=== PATIENT | male | born 1985 | race Caucasian/White ===

== ENCOUNTER 2018-03-30 18:16 | Emergency (ER) | payer OTHER ==
[~2018-03-30] VITALS: Ht 180.3 cm; Wt 125.7 kg
[2018-03-30] MEDS ORDERED: ONDANSETRON ODT 4 MG PO ONE (18:30)
[2018-03-30] MEDS ORDERED: MECLIZINE CHEWABLE 25 MG TAB PO ONE (18:30)
[2018-03-30] MEDS ORDERED: IBUPROFEN 600 MG TABLET ONE (18:31)
[2018-03-30] MEDS ORDERED: IBUPROFEN 200 MG TABLET PO ONE (19:00)
--- NOTE | 2018-03-30 19:14 | NUR ---
PT TO ROOM FROM LOBBY
[2018-03-30 19:32] LABS: BASOPHILS # (AUTO) 0.02 x10^3/uL (0-0.1); BASOPHILS % (AUTO) 0 % (0-1); EOSINOPHILS # (AUTO) 0.01 x10^3/uL (0-0.4); EOSINOPHILS % (AUTO) 0 % (1-7); LYMPHOCYTES # (AUTO) 1.07 x10^3/uL (1-3.4); LYMPHOCYTES % (AUTO) 20 % (22-44); MD NO; MEAN CORPUSCULAR HGB CONC 34.3 g/dL (33.2-36.2); MEAN CORPUSCULAR VOLUME 90.4 fL (81-97); MEAN PLATELET VOLUME 7.2 fL (7.4-10.4); MONOCYTES # (AUTO) 0.55 x10^3/uL (0.2-0.8); MONOCYTES % (AUTO) 10 % (2-9); NEUTROPHILS % (AUTO) 69 % (42-75); PLATELET COUNT 202 x10^3/uL (130-400); RED BLOOD COUNT 5.32 x10^6/uL (4.38-5.82); RED CELL DISTRIBUTION WIDTH 13.2 % (9.4-14.8)
[2018-03-30 19:38] LABS: ANION GAP 8 mmol/L (5-15); CALCIUM 8.7 mg/dL (8.5-10.1); CHLORIDE 103 mmol/L (98-107)
[2018-03-30 19:39] LABS: RAPID INFLUENZA A POSITIVE (Negative); RAPID INFLUENZA B Negative (Negative)
[2018-03-30] MEDS ORDERED: ONDANSETRON ODT 4 MG ONE (19:57)
--- NOTE | 2018-03-30 19:59 | NUR ---
PT PRESENTS TO ED WITH HEADACHE, LIGHT HEADEDNESS, SORE THROAT, AND N/V SINCE YESTERDAY. NO N/V AT THIS TIME. PT DECLINES ZOFRAN WHEN OFFERED. ALL MONITORS IN PLACE. PT A&O, RESPS EVEN AND UNLABORED, NEURO INTACT. EKG TAKEN IN TRIAGE. ALL RESULTS BACK, CHART UP FOR RECHECK. AWAITING FURTHER ORDERS AT THIS TIME.
--- NOTE | 2018-03-30 20:20 | NUR ---
results reveiwed by carlos andrade, per [facility] cxr not indicated for pt symptomology.
[2018-03-30 20:34] VITALS: BP 131/78
--- NOTE | 2018-03-30 20:35 | NUR ---
pt given dc instructions and script. pt educated regarding flonase, tamiflu and meclizine rx. pt educated regarding results and POC by MARCELO andrade. pt a&o, resps even and unlabored, no n/v at dc. pt amb to dc desk with steady gait, accompanied by spouse.
== END 2018-03-30 20:36 | disposition home or self-care (01) ==
LOC: ED 20:30
DX: J10.1 Influenza due to other identified influenza virus with other respiratory manifestations (principal); R11.2 Nausea with vomiting, unspecified; R50.81 Fever presenting with conditions classified elsewhere; R42 Dizziness and giddiness
CPT/HCPCS: 36415; 80048; 85025; 87040; 87081; 87400; 87880; 93005; 99284